=== PATIENT | male | born 1980 | race Caucasian/White ===

== ENCOUNTER 2019-09-28 07:46 | Emergency (ER) | payer OTHER ==
[~2019-09-28] VITALS: Ht 160 cm; Wt 77.1 kg
[2019-09-28 07:52] VITALS: BP 131/78
[2019-09-28] MEDS ORDERED: NACL 0.9% 1,000 ML IV SCH (08:15)
[2019-09-28] MEDS ORDERED: ONDANSETRON 4 MG/2 ML VIAL IVP ONE (08:15)
[2019-09-28] MEDS ORDERED: KETOROLAC 30 MG/ML VIAL IVP ONE (08:15)
--- NOTE | 2019-09-28 08:17 | NUR ---
PT TO USE RESTROOM
--- NOTE | 2019-09-28 08:17 | NUR ---
C/O GRADUALLY WORSENING AND CONTINUOUS R SIDED PAIN 8/10 X 1 WK WITH NAUSEA, NO VOMITING. R SIDE OF ABDOMEN TENDER TO TOUCH. PT GRIMACING IN PAIN. BOWEL SOUNDS ACTIVE. LAST BM THIS AM , NO STRAINING, NO INJURIES. PT DENIES DIARRHEA OR BLOOD IN STOOL. VS STABLE. PT ALERT AND AWAKE. AMBULATORY. HX--DENIES RX---NONE
--- NOTE | 2019-09-28 08:37 | NUR ---
IV INSERTED AND LABS DRAWN BEDSIDE
--- NOTE | 2019-09-28 08:37 | NUR ---
PT STATES HE IS ALLERGIC TO CRAB, DEVELOPS A RASH. PT STATES HE HAS HAD ORAL CONTRAST DYE BEFORE. DR BERRY MADE AWARE.
--- NOTE | 2019-09-28 08:44 | NUR ---
PT TO CT VIA [facility]ALLE[facility]
[2019-09-28 08:59] LABS: BASOPHILS # (AUTO) 0.1 K/uL (0.00-0.22); EOSINOPHILS # (AUTO) 0.2 K/uL (0-0.4); EOSINOPHILS % (AUTO) 2.9 % (0.0-4.0); HEMATOCRIT 47.3 % (36-52); HEMOGLOBIN 16.5 g/dL (12.0-18.0); LYMPHOCYTES # (AUTO) 2.8 K/uL (2.0-11.5); LYMPHOCYTES % (AUTO) 40.3 % (20.5-51.1); MEAN CORPUSCULAR HEMOGLOBIN 31 pg (27-31); MEAN CORPUSCULAR HGB CONC 35 g/dL (33-37); MONOCYTES # (AUTO) 0.5 K/uL (0.8-1.0); MONOCYTES % (AUTO) 7.4 % (1.7-9.3); NEUTROPHILS # (AUTO) 3.3 K/uL (1.8-7.7); NEUTROPHILS % (AUTO) 48.4 % (42.2-75.2); PLATELET COUNT (AUTO) 240 K/uL (140-450); RED BLOOD CELL COUNT(AUTO) 5.31 MIL/uL (4.20-6.10); RED CELL DISTRIBUTION WIDTH 12.8 % (11.6-13.7); WHITE BLOOD COUNT (AUTO) 6.8 K/uL (4.8-10.8)
[2019-09-28 09:00] LABS: APPEARANCE,URINE CLEAR (CLEAR); BILIRUBIN,URINE NEGATIVE (NEGATIVE); BLOOD, URINE NEGATIVE (NEGATIVE); COLOR,URINE YELLOW (YELLOW); LEUKOCYTE ESTERASE ,URINE NEGATIVE (NEGATIVE); NITRITE, URINE NEGATIVE (NEGATIVE); PH,URINE 6.5 (5.0-9.0); UGLUCOSE NEGATIVE (NEGATIVE)
[2019-09-28 09:12] LABS: ALBUMIN 4.1 g/dL (3.4-5.0); ANION GAP 11.4 (8-16); CARBON DIOXIDE 29.4 mmol/L (21-32); POTASSIUM 3.8 mmol/L (3.5-5.1); TOTAL BILIRUBIN 0.6 mg/dL (0.0-1.0)
--- NOTE | 2019-09-28 09:41 | NUR ---
nadr, pain 05/20
[2019-09-28 10:21] VITALS: BP 125/67
--- NOTE | 2019-09-28 10:21 | NUR ---
Patient discharged with v/s stable. Written and verbal after care instructions given and explained regarding possible diverticulitis. Patient alert, oriented and verbalized understanding of instructions. Ambulatory with steady gait. All questions addressed prior to discharge. ID band removed. Patient advised to follow up with PMD. Rx of keflex, bactrim, norco, and zofran given. Patient educated on indication of medication including possible reaction and side effects. Opportunity to ask questions provided and answered. pt instructed to not taking medication with alcohol and to not drive after taking norco as it may impair driving. pt given copy of ct scan and lab results to take to his pcp
== END 2019-09-28 10:21 | disposition home or self-care (01) ==
LOC: MED 07:46
DX: K57.92 Diverticulitis of intestine, part unspecified, without perforation or abscess without bleeding (principal); Z88.0 Allergy status to penicillin; Z91.013 Allergy to seafood; Z98.890 Other specified postprocedural states
CPT/HCPCS: 36415; 74176; 80053; 81003; 83605; 83690; 85025; 87040; 96361; 96374; 96375; 99284; J1885; J2405; J7030

== ENCOUNTER 2020-04-29 13:51 | Emergency (ER) | payer MEDICAID, OTHER ==
[~2020-04-29] VITALS: Ht 165.1 cm; Wt 77.1 kg
[2020-04-29 13:52] VITALS: BP 136/89
[2020-04-29] MEDS ORDERED: ASPIRIN 81 MG TAB.CHEW PO ONE (14:20)
[2020-04-29] MEDS ORDERED: NACL 0.9% 500 ML IV ONE (14:20)
[2020-04-29 14:36] LABS: BASOPHILS # (AUTO) 0.1 K/uL (0.00-0.22); BASOPHILS % (AUTO) 1.5 % (0.0-2.0); EOSINOPHILS # (AUTO) 0.1 K/uL (0-0.4); EOSINOPHILS % (AUTO) 1.8 % (0.0-4.0); HEMATOCRIT 46.9 % (36-52); HEMOGLOBIN 16.4 g/dL (12.0-18.0); LYMPHOCYTES # (AUTO) 2.5 K/uL (2.0-11.5); LYMPHOCYTES % (AUTO) 36.3 % (20.5-51.1); MEAN CORPUSCULAR HEMOGLOBIN 31 pg (27-31); MEAN CORPUSCULAR HGB CONC 35 g/dL (33-37); MEAN CORPUSCULAR VOLUME 87.7 fL (80-94); MONOCYTES # (AUTO) 0.5 K/uL (0.8-1.0); MONOCYTES % (AUTO) 7.4 % (1.7-9.3); NEUTROPHILS # (AUTO) 3.6 K/uL (1.8-7.7); PLATELET COUNT (AUTO) 261 K/uL (140-450); RED BLOOD CELL COUNT(AUTO) 5.34 MIL/uL (4.20-6.10); RED CELL DISTRIBUTION WIDTH 13.2 % (11.6-13.7); WHITE BLOOD COUNT (AUTO) 6.9 K/uL (4.8-10.8)
[2020-04-29] MEDS ORDERED: KETOROLAC 30 MG/ML VIAL IVP ONE (14:40)
[2020-04-29 14:55] LABS: ALBUMIN 3.9 g/dL (3.4-5.0); ANION GAP 9.2 (8-16); CARBON DIOXIDE 32.3 mmol/L (21-32); POTASSIUM 3.5 mmol/L (3.5-5.1); TOTAL BILIRUBIN 0.8 mg/dL (0.0-1.0)
[2020-04-29] MEDS ORDERED: DICL1GEL19 TP (16:50)
[2020-04-29] MEDS ORDERED: NAPR-54 PO (16:50)
[2020-04-29 17:01] VITALS: BP 107/61
== END 2020-04-29 17:02 | disposition home or self-care (01) ==
LOC: MED 13:51
DX: M94.0 Chondrocostal junction syndrome [Tietze] (principal); Z88.0 Allergy status to penicillin; Z88.8 Allergy status to other drugs, medicaments and biological substances; Z79.899 Other long term (current) drug therapy
CPT/HCPCS: 36415; 71045; 74022; 80053; 84484; 85025; 93005; 96374; 99285; J1885; J7030

== ENCOUNTER 2021-02-04 13:17 | Emergency (ER) | payer MEDICAID, OTHER ==
[~2021-02-04] VITALS: Ht 165.1 cm; Wt 68.0 kg
[~2021-02-04 13:17] MED LIST: DICL1GEL19 TP; NAPR-54 PO
[2021-02-04 13:33] VITALS: BP 120/73
--- NOTE | 2021-02-04 13:42 | NUR ---
TENT 4
[2021-02-04] MEDS ORDERED: KETOROLAC 30 MG/ML VIAL IM ONE (13:50)
[2021-02-04] MEDS ORDERED: ALBU0.0912 INH (15:19)
[2021-02-04] MEDS ORDERED: GUAI237L61 PO (15:19)
--- NOTE | 2021-02-04 15:24 | NUR ---
covid pcr swab done.
[2021-02-04 15:35] VITALS: BP 124/71
--- NOTE | 2021-02-04 15:35 | NUR ---
Patient discharged with v/s stable. Written and verbal after care instructions given FOR COVID 19 and explained. Patient alert, oriented and verbalized understanding of instructions. Ambulatory with steady gait. All questions addressed prior to discharge. ID band removed. Patient advised to follow up with PMD. Rx of ALBUTEROL, ROITUSSIN given. Patient educated on indication of medication including possible reaction and side effects. Opportunity to ask questions provided and answered.
== END 2021-02-04 15:35 | disposition home or self-care (01) ==
LOC: MED 13:17
DX: B34.9 Viral infection, unspecified (principal); Z20.822 Contact with and (suspected) exposure to COVID-19; R10.9 Unspecified abdominal pain; R19.7 Diarrhea, unspecified
CPT/HCPCS: 36415; 71045; 76705; 93005; 96372; 99285; J1885; Q0092; U0003

== ENCOUNTER 2023-01-19 20:20 | Emergency (ER) | payer MEDICAID ==
[~2023-01-19] VITALS: Ht 162.6 cm; Wt 72.6 kg
[~2023-01-19 20:20] MED LIST changes: +ALBU0.0912 INH; +GUAI237L61 PO
[2023-01-19 21:09] VITALS: BP 107/61; PULSE 95; RESP 20; TEMP 98; O2SAT 98
[2023-01-19] MEDS ORDERED: NAPR-54 PO (23:07)
[2023-01-19] MEDS ORDERED: KETOROLAC 60 MG/2 ML VIAL IM ONE (23:15)
== END 2023-01-19 23:15 | disposition home or self-care (01) ==
LOC: MED 20:20
DX: S13.4XXA Sprain of ligaments of cervical spine, initial encounter (principal); R07.89 Other chest pain; Z79.899 Other long term (current) drug therapy; Z79.1 Long term (current) use of non-steroidal anti-inflammatories (NSAID); Z88.0 Allergy status to penicillin; Z91.013 Allergy to seafood; X58.XXXA Exposure to other specified factors, initial encounter; Y92.89 Other specified places as the place of occurrence of the external cause; Y93.89 Activity, other specified; Y99.8 Other external cause status
CPT/HCPCS: 93005; 96372; 99283; J1885